=== PATIENT | male | born 1935 | race Caucasian/White ===

== ENCOUNTER 2019-05-15 09:54 | Emergency (ER) | payer MEDICARE ==
[2019-05-15 11:10] LABS: ABS Basophils 0.1 10^3/ul (0-0.2); ABS Monocytes 1.2 10^3/ul (0-0.8); ABS Neutrophils 3.7 10^3/ul (1.5-7.7); Eosinophil % 0.3 %; Hematocrit 45 % (42-52); Hemoglobin 15.3 g/dL (14.0-18.0); Mean Corpuscular HGB Conc 34 g/dL (31-36); Mean Corpuscular Hemoglobin 33 pg (27-31); Mean Corpuscular Volume 95 fL (80-94); Mean Platelet Volume 8.1 fL (7.4-10.4); Platelet Count 156 10^3/uL (150-450); Red Blood Count 4.71 10^6 /uL (4.18-5.48); Red Cell Distribution Width 14 % (10-15)
--- NOTE | 2019-05-15 11:18 | ED ---
Adult Trauma - HPI Summary HPI Summary: The pt is an 83 yr old male presenting to [facility] c/o contusion to the left forehead after falling beginning last night. He states that he was trying to get out of bed last night but fell and hit his head. The pt was able to remember the incident and denies any LOC. He denies any pain and rates his current pain severity a 0/10. No aggravating or alleviating factors noted. He mentions that he has been fighting a cold for the past 3 days. He also reports fatigue, nasal congestion, coughing, shoulder pain and feeling foggy and slow . - History of Current Complaint Chief Complaint: EDHeadInjury Time Seen by Provider: 05/15/19 10:44 Hx Obtained From: Patient Mechanism of Injury: Fall Loss of Consciousness: no loss of consciousness Onset/Duration: Started Days Ago, Resolved Onset of Pain: Post Accident Onset Severity: Mild Current Severity: None Pain Intensity: 0 Pain Scale Used: 0-10 Numeric Location: Head Aggravating Factor(s): Nothing Alleviating Factor(s): Nothing Associated Signs & Symptoms: Positive: Cough, Other: - pos - fatigue, nasal congestion, shoulder pain, feeling "foggy and slow". Negative: Loss of Consciousness - Allergy/Home Medications Allergies/Adverse Reactions: Allergies Allergy/AdvReac Type Severity Reaction Status Date / Time No Known Allergies Allergy Verified 05/15/19 10:01 PMH/Surg Hx/FS Hx/Imm Hx Sensory History: Denies: Hx Legally Blind, Hx Deafness Opthamlomology History: Denies: Hx Legally Blind EENT History: Denies: Hx Deafness - Surgical History Surgical History: Yes Surgery Procedure, Year, and Place: stents. ablation. left TKA. back surgery Infectious Disease History: No Infectious Disease History: Denies: Traveled Outside the US in Last 30 Days - Family History Known Family History: Positive: Hypertension - Social History Lives: With Family Alcohol Use: Daily Substance Use Type: Reports: None Smoking Status (MU): Never Smoked Tobacco Review of Systems Positive: Fatigue Positive: Other - pos - nasal congestion Positive: Cough Positive: Other - pos - shoulder pain Neurological: Other - pos - feeling "foggy and slow" Negative: Syncope All Other Systems Reviewed And Are Negative: Yes Physical Exam - Summary Physical Exam Summary: Appearance: The patient is well-nourished in no acute distress and in no acute pain. Skin: The skin is warm and dry and skin color reflects adequate perfusion. HEENT: The head is normocephalic and atraumatic. The pupils are equal and reactive. The conjunctivae are clear and without drainage. Nares are patent and without drainage. Mouth reveals moist mucous membranes and the throat is without erythema and exudate. The external ears are intact. The ear canals are patent and without drainage. The tympanic membranes are intact. Neck: The neck is supple with full range of motion and non-tender. There are no carotid bruits. There is no neck vein distension. Respiratory: Chest is non-tender. Lungs are clear to auscultation and breath sounds are symmetrical and equal. Cardiovascular: Heart is regular rate and rhythm. There is no murmur or rub auscultated. There is no peripheral edema and pulses are symmetrical and equal. Abdomen: The abdomen is soft and non-tender. There are normal bowel sounds heard in all four quadrants and there is no organomegaly palpated. Musculoskeletal: There is no back tenderness noted. Extremities are non-tender with full range of motion. There is good capillary refill. There is no peripheral edema or calf tenderness elicited. Neurological: Patient is alert and oriented to person, place and time. The patient has symmetrical motor strength in all four extremities. Cranial nerves are grossly intact. Deep tendon reflexes are symmetrical and equal in all four extremities. Psychiatric: The patient has an appropriate affect and does not exhibit any anxiety or depression. Triage Information Reviewed: Yes Vital Signs On Initial Exam: Initial Vitals Temp Pulse Resp BP Pulse Ox 99.4 F 68 18 131/70 97 05/15/19 09:58 05/15/19 09:58 05/15/19 09:58 05/15/19 09:58 05/15/19 09:58 Vital Signs Reviewed: Yes Diagnostics - Vital Signs Vital Signs Temp Pulse Resp BP Pulse Ox 05/15/19 11:01 60 05/15/19 11:00 60 130/72 94 05/15/19 10:59 64 97 05/15/19 09:58 99.4 F 68 18 131/70 97 - Laboratory Lab Results: Lab Results 05/15/19 Range/Units 11:02 WBC 6.0 (3.5-10.8) 10^3/uL RBC 4.71 (4.18-5.48) 10^6 /uL Hgb 15.3 (14.0-18.0) g/dL Hct 45 (42-52) % MCV 95 H (80-94) fL MCH 33 H (27-31) pg MCHC 34 (31-36) g/dL RDW 14 (10-15) % Plt Count 156 (150-450) 10^3/uL MPV 8.1 (7.4-10.4) fL Neut % (Auto) 61.6 % Lymph % (Auto) 17.0 % Callaway % (Auto) 20.0 % Eos % (Auto) 0.3 % Baso % (Auto) 1.1 % Absolute Neuts (auto) 3.7 (1.5-7.7) 10^3/ul Absolute Lymphs (auto) 1.0 (1.0-4.8) 10^3/ul Absolute Monos (auto) 1.2 H (0-0.8) 10^3/ul Absolute Eos (auto) 0.0 (0-0.6) 10^3/ul Absolute Basos (auto) 0.1 (0-0.2) 10^3/ul Absolute Nucleated RBC 0.0 10^3/ul Nucleated RBC % 0.0 Result Diagrams: 05/15/19 11:02 05/15/19 11:02 Lab Statement: Any lab studies that have been ordered have been reviewed, and results considered in the medical decision making process. - Radiology CXR Radiology Interpretation Completed By: Radiologist Summary of Radiographic Findings: IMPRESSION(S): NO ACTIVE CARDIOPULMONARY DISEASE. ED Physician has reviewed this report. - CT Brain CT CT Interpretation Completed By: Radiologist Summary of CT Findings: IMPRESSION(S): NO ACUTE INTRACRANIAL PATHOLOGY. ED Physician has reviewed this report. - EKG 1106 Cardiac Rate: NL - 69 bpm EKG Rhythm: Sinus Rhythm Summary of EKG Findings: Sinus rhythm @ 69 bpm. Non-specific T-wave changes diffusely. Re-Evaluation - Re-Evaluation Second Eval Re-Evaluation Time: 15:13 - 2nd troponin results discussed with pt. First Eval Re-Evaluation Time: 12:17 - Lab and imaging results discussed with pt. Adult Trauma Course/Dx - Course Course Of Treatment: Mr. Parker traveled here on a red eye flight arriving Friday morning. He has not recovered well and is complaining of a lot of tiredness and undue fatigue. He got up to urinate during the night and lost his balance, fell hitting his head and suffered a lot of bleeding. He is on Eliquis. He was nontoxic in appearance with stable vitals and had a significant abrasion on his head. He was kept on the monitor while we did a workup. His troponin was in the low indeterminate range at 0.04. Because of his fatigue and slightly elevated troponin I recommended that we watch him overnight in the hospital. He did not want stay but was willing to stay for repeat troponin. The repeat troponin came back at 0.05 and I was able to convince him to stay for a third troponin which was again 0.04. He has had cardiac problems in the past and some mild renal insufficiency and I think that this represents a chronic very slight indeterminant result. He does state that he is congested and was concerned that he had pneumonia but a chest x-ray was negative. I encouraged him to return if anything changed and he was willing to do so. - Diagnoses Provider Diagnoses: Head injury Discharge - Sign-Out/Discharge Documenting (check all that apply): Patient Departure - Discharge Patient Received Moderate/Deep Sedation with Procedure: No - Discharge Plan Condition: Stable Disposition: HOME Patient Education Materials: Head Injury (ED) Referrals: [facility] [Outside] - 3 Days Additional Instructions: Please follow up with your primary care doctor in the next 2-3 days and return to the emergency department for worsening or concerning symptoms. - Billing Disposition and Condition Condition: STABLE Disposition: Home - Attestation Statements Document Initiated by Hever: Yes Documenting Scribe: Tyrell Tejeda Provider For Whom Hever is Documenting (Include Credential): Mihai Gamboa MD Scribe Attestation: I, Tyrell Tejeda, scribed for Mihai Gamboa MD on 05/15/19 at 1945. Scribe Documentation Reviewed: Yes Provider Attestation: The documentation as recorded by the Tyrell murillo accurately reflects the service I personally performed and the decisions made by me, Mihai Gamboa MD Status of Scriblaurent Document: Viewed
[2019-05-15 11:28] LABS: ALT 25 U/L (7-52); AST 27 U/L (13-39); Albumin 4.5 g/dL (3.2-5.2); Alkaline Phosphatase 55 U/L (34-104); Anion Gap 8 mmol/L (2-11); BUN/Creatinine Ratio 15.9 (8-20); Blood Urea Nitrogen 20 mg/dL (6-24); CO2 Carbon Dioxide 25 mmol/L (22-32); Calcium 8.9 mg/dL (8.6-10.3); Chloride 102 mmol/L (101-111); EGFR African American 66.1 (>60); EGFR Non-African American 54.7 (>60); Globulin 2.3 g/dL (2-4); Glucose 104 mg/dL (70-100); Potassium 4.5 mmol/L (3.5-5.0); Sodium 135 mmol/L (135-145); Total Protein 6.8 g/dL (6.4-8.9)
[2019-05-15 11:47] LABS: Troponin I 0.04 ng/mL (<0.04)
[2019-05-15 15:09] LABS: Troponin I 0.05 ng/mL (<0.04)
[2019-05-15 17:37] LABS: Troponin I 0.04 ng/mL (<0.04)
[2019-05-15 17:50] VITALS: BP 137/85
== END 2019-05-15 17:49 | disposition home or self-care (01) ==
LOC: ED 09:54
DX: S09.90XA Unspecified injury of head, initial encounter (principal); R53.83 Other fatigue; W19.XXXA Unspecified fall, initial encounter; Y92.9 Unspecified place or not applicable; Z79.01 Long term (current) use of anticoagulants
CPT/HCPCS: 36415; 70450; 71046; 80053; 83605; 84443; 84484; 85025; 93005; 99283

== ENCOUNTER 2019-05-18 13:07 | Observation (INO) | payer MEDICARE ==
[2019-05-18] MEDS ORDERED: NS 0.9% 500 ML* 500 ML IV ONE (13:28)
[2019-05-18 13:35] LABS: ABS Lymphocytes 1.3 10^3/ul (1.0-4.8); ABS Monocytes 1.1 10^3/ul (0-0.8); ABS Neutrophils 3.3 10^3/ul (1.5-7.7); Eosinophil % 0.3 %; Hematocrit 43 % (42-52); Hemoglobin 14.9 g/dL (14.0-18.0); Lymphocyte % 22.3 %; Mean Corpuscular HGB Conc 35 g/dL (31-36); Mean Corpuscular Hemoglobin 32 pg (27-31); Mean Corpuscular Volume 93 fL (80-94); Mean Platelet Volume 8.6 fL (7.4-10.4); Nucleated Red Blood Cells % 0.3; Platelet Count 148 10^3/uL (150-450); Red Blood Count 4.61 10^6 /uL (4.18-5.48); Red Cell Distribution Width 14 % (10-15); White Blood Count 5.7 10^3/uL (3.5-10.8)
--- NOTE | 2019-05-18 13:37 | ED ---
Shortness of Breath - HPI Summary HPI Summary: The pt is a 83 yr old male presenting to [facility] c/o SOB with exertion beginning 3 hours SPARK TESTER. He states that he was walking on a treadmill earlier this morning and starting feeling some SOB. He notes that the SOB is only with exertion but not at rest. He mentions that he had a fall 1 week SPARK TESTER and was seen at [facility] [address] Gamboa who found that he had a high troponin. He denied admission to [facility]. Per the EMS, he is currently in A-fib for the first time in 10 years. No alleviating factors noted. He rates his current pain severity a 0/ 10. He also reports fatigue due to an ongoing cold but denies any cough, fever, leg pain, or edema. He mentions that he has had 6 stents, a pacemaker, cardiac ablation, and Hx of A-fib. Allergies noted. Medications reviewed. - History of Current Complaint Chief Complaint: EDShortnessOfBreath Time Seen by Provider: 05/18/19 13:11 Hx Obtained From: Patient Onset/Duration: Sudden Onset, Lasting Hours, Resolved Timing: Intermittent Episodes Lasting: - several minutes Current Severity: None Dyspnea At: Exertion Aggravating Factors: Movement - walking on treadmill Alleviating Factors: Nothing Associated Signs & Symptoms: Negative - cough, fever, leg pain, edema - Allergy/Home Medications Allergies/Adverse Reactions: Allergies Allergy/AdvReac Type Severity Reaction Status Date / Time No Known Allergies Allergy Verified 05/18/19 11:39 PMH/Surg Hx/FS Hx/Imm Hx Endocrine/Hematology History: Reports: Hx Thyroid Disease Denies: Hx Diabetes Cardiovascular History: Reports: Hx Hypertension, Hx Pacemaker/ICD Respiratory History: Denies: Hx Asthma, Hx Chronic Obstructive Pulmonary Disease (COPD) GI History: Denies: Hx Ulcer Sensory History: Denies: Hx Legally Blind, Hx Deafness Opthamlomology History: Denies: Hx Legally Blind EENT History: Denies: Hx Deafness - Surgical History Surgery Procedure, Year, and Place: stents. ablation. left TKA. back surgery Infectious Disease History: No Infectious Disease History: Denies: Hx Hepatitis, Hx Human Immunodeficiency Virus (HIV), Traveled Outside the US in Last 30 Days - Family History Known Family History: Positive: Hypertension - Social History Alcohol Use: Daily Alcohol Amount: 2 shots gin per day Substance Use Type: Reports: None Smoking Status (MU): Never Smoked Tobacco Review of Systems Positive: Fatigue. Negative: Fever Positive: Shortness Of Breath - on exertion. Negative: Cough Positive: Other - neg - leg pain. Negative: Edema All Other Systems Reviewed And Are Negative: Yes Physical Exam - Summary Physical Exam Summary: Constitutional: Well-developed, Well-nourished, Alert. (-) Distressed Skin: Warm, Dry HENT: Normocephalic; Atraumatic Eyes: Conjunctiva normal Neck: Musculoskeletal ROM normal neck. (-) JVD, (-) Stridor, (-) Tracheal deviation Cardio: Arrhythmia on monitor, no tachycardia, Heart sounds normal; Intact distal pulses; The pedal pulses are 2+ and symmetric. Radial pulses are 2+ and symmetric. (-) Murmur Pulmonary/Chest wall: Effort normal. (-) Respiratory distress, (-) Wheezes, (-) Rales Abd: Soft, (-) tenderness, (-) Distension, (-) Guarding, (-) Rebound Musculoskeletal: (-) Edema Lymph: (-) Cervical adenopathy Neuro: Alert, Oriented x3 Psych: Mood and affect Normal Triage Information Reviewed: Yes Vital Signs On Initial Exam: Initial Vitals Temp Pulse Resp BP Pulse Ox 97.4 F 77 20 75/59 71 05/18/19 13:15 05/18/19 13:15 05/18/19 13:15 05/18/19 13:15 05/18/19 13:15 Vital Signs Reviewed: Yes Diagnostics - Vital Signs Vital Signs Temp Pulse Resp BP Pulse Ox 05/18/19 13:23 99 05/18/19 13:15 97.4 F 77 20 75/59 71 - Laboratory Result Diagrams: 05/18/19 13:28 05/18/19 13:28 Lab Statement: Any lab studies that have been ordered have been reviewed, and results considered in the medical decision making process. - Radiology CXR Radiology Interpretation Completed By: Radiologist Summary of Radiographic Findings: IMPRESSION(S): No acute cardiopulmonary process by radiograph. ED Physician has reviewed this report. - EKG 1331 Cardiac Rate: Other Rate - A-fib @ 87 bpm EKG Rhythm: Atrial Fibrillation Summary of EKG Findings: A-fib @ 87 bpm, multiple PVCs, no ST segment changes. Re-Evaluation - Re-Evaluation First Eval Re-Evaluation Time: 13:31 Comment: Pt BP reading is initially hypotensive. A repeat BP test shows normal BP levels. Cuff size is changed, pt is clinically not hypotensive. Course/Dx - Course Course Of Treatment: Patient is here with exertional shortness of breath. Upon arrival, patient was in atrial fibrillation not RVR. Patient was initially hypotensive but that improved after proper size blood pressure cuff was found. Patient was here on Friday with elevated troponin but declined admission then. Patient has an elevated troponin again of 0.08. Patient's EKG did not show any evidence of ischemia. Patient does have a mildly elevated BNP. Given patient's cardiac history and troponin leak, patient was admitted to the hospital for further evaluation and management. - Diagnoses Differential Diagnosis/HQI/PQRI: Positive: NH, Pneumonia, Pulmonary Embolism, Other - CHF, viral syndrome Provider Diagnoses: Afib, NSTEMI (non-ST elevated myocardial infarction), Elevated brain natriuretic peptide (BNP) level, SOB (shortness of breath) on exertion - Physician Notifications Discussed Care of Patient With: Erika Saenz - Dr. Saenz will admit the pt. Time Discussed With Above Provider: 14:18 Instructed by Provider To: Admit As Inpatient Discharge ED - Sign-Out/Discharge Documenting (check all that apply): Patient Departure - admit Patient Received Moderate/Deep Sedation with Procedure: No - Discharge Plan Condition: Stable Disposition: ADMITTED TO [facility] Referrals: No Primary Care Phys,[facility] [Primary Care Provider] - - Billing Disposition and Condition Condition: STABLE Disposition: Admitted to [facility] - Attestation Statements Document Initiated by Hever: Yes Documenting Scribe: Tyrell Tejeda Provider For Whom Hever is Documenting (Include Credential): Filippo Liu MD Scribe Attestation: Tyrell Anderson, scribed for Filippo Liu MD on 05/18/19 at 1436. Scribe Documentation Reviewed: Yes Provider Attestation: The documentation as recorded by the Tyrell murillo accurately reflects the service I personally performed and the decisions made by me, Filippo Liu MD Status of Scribe Document: Viewed
[2019-05-18 13:59] LABS: ALT 48 U/L (7-52); AST 43 U/L (13-39); Albumin 3.9 g/dL (3.2-5.2); Albumin/Globulin Ratio 1.6 (1-3); Alkaline Phosphatase 47 U/L (34-104); Anion Gap 6 mmol/L (2-11); BUN/Creatinine Ratio 23.6 (8-20); Blood Urea Nitrogen 34 mg/dL (6-24); CO2 Carbon Dioxide 22 mmol/L (22-32); Calcium 8.9 mg/dL (8.6-10.3); Chloride 106 mmol/L (101-111); EGFR African American 56.7 (>60); EGFR Non-African American 46.9 (>60); Globulin 2.4 g/dL (2-4); Glucose 92 mg/dL (70-100); Potassium 4.6 mmol/L (3.5-5.0); Sodium 134 mmol/L (135-145); Total Protein 6.3 g/dL (6.4-8.9)
[2019-05-18 14:44] LABS: Troponin I 0.08 ng/mL (<0.04)
[2019-05-18] MEDS ORDERED: Al Hydrox/Mg Hydrox/Simet LIQ* 30 ML UDC PO PRN (15:10)
--- NOTE | 2019-05-18 16:23 | HP ---
HISTORY AND PHYSICAL: DATE OF ADMISSION: 05/18/19 PRIMARY CARE PROVIDER: The patient's primary care provider is in [place], none locally. CHIEF COMPLAINT: Shortness of breath and cough. HISTORY OF PRESENT ILLNESS: Brien Parker is an 83-year-old male with history of paroxysmal atrial fibrillation, status post ablation, pacemaker placement, and coronary artery disease who presented to the hospital complaining of cough and shortness of breath ever since he "caught that cold from the airplane." The patient stated that he arrived to [facility] from [place] on 05/14/19. On 05/15/19, he got up in the middle of the night to go to the bathroom, he slipped and fell and had an abrasion on his forehead. He came into the ED for evaluation. Here, he was noted to be in normal sinus rhythm, but his troponin continued to be at 0.04 to 0.05. He was recommended admission, but he refused and left the ED at that point. The patient stated that ever since then he has been coughing, which is nonproductive. He also had been more short of breath, although that is somewhat questionable since the patient stated that he had been more short of breath for the past 6 months or so when walking up the stairs. The patient's troponin turned out to be 0.08. Otherwise, his workup is grossly unremarkable and he is going to be placed on overnight observation with a diagnosis of elevated troponin. PAST MEDICAL HISTORY: 1. History of paroxysmal atrial fibrillation, status post ablation in 2009 in [place], [place]. The patient stated that from his pacemaker interrogation in the past, he would have "short burst of atrial fibrillation." 2. History of status post 6 stents placed during multiple cardiac catheterizations in the past, the last one was in 2007. 3. Status post pacemaker placement over 25 years ago. 4. History of left total knee replacement. 5. History of lower back surgery. 6. History of hypertension. 7. Dyslipidemia. MEDICATIONS AT HOME: Include: 1. Simvastatin 20 mg daily. 2. Xarelto 20 mg daily. 3. Levothyroxine 100 mcg daily. 4. Aspirin 81 mg daily. 5. Lisinopril 20 mg daily. ALLERGIES: No known drug allergies. FAMILY HISTORY: Positive for mother who at the age of 92 secondary to pneumonia and father who at the age of 82 secondary to old age. SOCIAL HISTORY: The patient denies any tobacco or drug use. He uses 2 gin and tonics a day. He lives with his , who is his surrogate. He is fully independent with activities of daily living. REVIEW OF SYSTEMS: Please see history of present illness. Positive for nonproductive cough. Positive for shortness of breath with exertion for the past 6 months. Negative for palpitations or chest pain. Negative for leg edema. Negative for fever. All the remaining 12 systems were reviewed with the patient and were otherwise negative. PHYSICAL EXAMINATION GENERAL: The patient is a very pleasant 83-year-old male, who is in no acute distress, alert, awake, and oriented x3. VITAL SIGNS: Blood pressure of 110/71, heart rate of 82 and irregular, respiratory rate 14, oxygen saturation 98% on room air, temperature of 97.4. HEENT: Head: Atraumatic, normocephalic. Eyes: Pupils are equal, reactive to light and accommodation. Oropharynx is clear. Mucosa moist. NECK: Supple. No JVD. No bruits bilaterally. RESPIRATORY: Coarse breath sounds bilaterally and scant wheezes in bilateral mid lungs. CARDIOVASCULAR: Irregular heart rate. No murmur. ABDOMEN: Soft, nontender. Bowel sounds are present in all 4 quadrants. EXTREMITIES: There is no edema. Pulses are +2 bilaterally. No clubbing or cyanosis. NEURO EVALUATION: Speech is clear. Cranial nerves II through XII grossly intact. Motor strength is 5/5 bilaterally. PSYCHIATRIC: Oriented x3 with no evidence of anxiety or depression. DIAGNOSTIC STUDIES/LAB DATA: Sodium of 134, potassium 4.6, chloride 106, carbon dioxide 22, BUN 34, creatinine 1.44. Liver function tests unremarkable apart from slight elevation of AST at 43. The patient's troponin is 0.08. Brain natriuretic peptide was 356. CBC: White blood cell count 5.7, hemoglobin of 14.9, hematocrit of 43, and platelets of 148. Portable chest x-ray reviewed by myself and read by the radiologist, impression : "Overlying support devices obscured the muniz of view. The lungs are clear. There is no pleural effusion. The cardiomediastinal silhouette is within normal limits and left chest wall pacemaker is in place. The upper abdominal contents are normal. Also, structures are unremarkable. No acute cardiopulmonary process by radiograph." The patient's EKG showed atrial fibrillation with a heart rate of 87 beats per minute with frequent PVCs. Comparing with an EKG from a week ago, the patient at that point was in sinus rhythm and no PVCs were noted. ASSESSMENT AND PLAN: 1. In regards to the patient's shortness of breath and cough, it appears to be related to bronchitis. His nonproductive cough and lack of fevers and somewhat insidious onset is likely due to viral etiology, but bacterial etiology also has to be ruled out. At this point, I will place the patient on empiric doxycycline for acute bronchitis. 2. For his elevated troponin, it is likely due to demand ischemia in a patient with bronchitis. We will trend troponins. Place the patient on telemetry monitored bed. We will also obtain transthoracic echocardiogram. 3. For his atrial fibrillation, he is rate controlled. I will continue the patient's Xarelto. I will ask for pacemaker interrogation if possible, although the patient stated that the pacemaker is over 25 years old and he does not remember the brand name. I suspect the patient had been in and out of slower atrial fibrillation in the past 10 years after his ablation. That is likely why he was continued on Xarelto. 4. Increased creatinine. His creatinine a week ago was 1.2. I suspect he has acute kidney injury due to dehydration. We will place the patient on gentle intravenous fluids. 5. For DVT prophylaxis, the patient is going to be continued on Xarelto. TIME SPENT: Approximately 72 minutes was spent on admission of this patient, more than half that time was spent [id number] with the patient during the interview and physical exam. [id number]/[facility] #: [id number] CLAUDIO
[2019-05-18 16:49] LABS: Troponin I 0.07 ng/mL (<0.04)
[2019-05-18 17:00] LABS: TSH (Thyroid Stimulating Horm) 2.65 mcIU/mL (0.34-5.60)
[2019-05-18] MEDS: NS 0.9% 1000 ML** 1,000 ML IV SCH (17:11)
[2019-05-18] MEDS: DOXYcycline CAP(*) 100 MG PO SCH (20:15)
[2019-05-18 20:38] LABS: Urine Appearance Clear; Urine Bilirubin Negative (Negative); Urine Blood Negative (Negative); Urine Color Yellow; Urine Glucose Negative (Negative); Urine Ketones Negative (Negative); Urine Nitrite Negative (Negative); Urine Protein Negative (Negative); Urine Specific Gravity 1.017 (1.010-1.030); Urine Urobilinogen Negative (Negative)
[2019-05-19] MEDS ORDERED: Levothyroxine TAB* 100 MCG TAB PO SCH (06:00)
[2019-05-19] MEDS: NS 0.9% 1000 ML** 1,000 ML IV SCH (06:12)
[2019-05-19 06:44] LABS: ABS Lymphocytes 1.4 10^3/ul (1.0-4.8); ABS Monocytes 0.7 10^3/ul (0-0.8); ABS Neutrophils 2.4 10^3/ul (1.5-7.7); Eosinophil % 0.7 %; Hematocrit 41 % (42-52); Hemoglobin 14.4 g/dL (14.0-18.0); Lymphocyte % 31.2 %; Mean Corpuscular HGB Conc 35 g/dL (31-36); Mean Corpuscular Hemoglobin 33 pg (27-31); Mean Corpuscular Volume 92 fL (80-94); Mean Platelet Volume 9.4 fL (7.4-10.4); Platelet Count 129 10^3/uL (150-450); Red Blood Count 4.42 10^6 /uL (4.18-5.48); Red Cell Distribution Width 14 % (10-15); White Blood Count 4.6 10^3/uL (3.5-10.8)
[2019-05-19 06:58] LABS: BUN/Creatinine Ratio 24.8 (8-20); Calcium 8.1 mg/dL (8.6-10.3); Potassium 4.2 mmol/L (3.5-5.0)
[2019-05-19] MEDS: DOXYcycline CAP(*) 100 MG PO SCH (08:29)
[2019-05-19] MEDS ORDERED: Rivaroxaban TAB(*) 20 MG TAB PO SCH (08:30)
[2019-05-19] MEDS ORDERED: Atorvastatin* 10 MG TAB PO SCH (09:00)
[2019-05-19] MEDS ORDERED: Psyllium PAK PO SCH (09:00)
[2019-05-19] MEDS ORDERED: Aspirin 81 mg CHEW TAB* 81 MG TAB.CHEW PO SCH (09:00)
--- NOTE | 2019-05-19 10:08 | ECHO ---
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 History: Atrial fibrillation. Risk factors: Hypertension. Dyslipidemia. Labs, prior tests, procedures, and surgery: Catheterization. There was a stenosis which was treated with a stent. Permanent pacemaker system implantation. Electrophysiology study with ablation. Conclusions Summary: - Left ventricle: There is moderate concentric hypertrophy. Systolic function is at the lower limits of normal. The estimated ejection fraction is 50-55%. - Right ventricle: Pacer wire noted in the right ventricle. Systolic function is normal. - Mitral valve: There is mild regurgitation. - Tricuspid valve: There is trace to mild regurgitation. - Aorta: The ascending aorta internal dimension in the A-P direction, maximal systolic dimension is 3.9 cm. - Ascending aorta: The ascending aorta is mildly dilated. - Pulmonary arteries: Systolic pressure is within the normal range. Study data: Transthoracic echocardiogram. Procedure: Transthoracic echocardiography was performed. Image quality was fair. The study was technically limited due to poor acoustic window availability. Complete 2D, spectral Doppler, and color flow Doppler. Location: Bedside. Patient status: Inpatient. Patient room number: 439. Rhythm: Paced rhythm. Atrial fibrillation. Findings Left ventricle: The cavity size is normal. There is moderate concentric hypertrophy. Systolic function is at the lower limits of normal. The estimated ejection fraction is 50-55%. Wall motion is normal; there are no regional wall motion abnormalities. Left ventricular diastolic function parameters are indeterminate. Right ventricle: The cavity size is mildly dilated. Pacer wire noted in the right ventricle. Systolic function is normal. Systolic pressure is within the normal range. Ventricular septum: There is abnormal interventricular septal wall motion consistent with an RV pacemaker. Left atrium: The atrium is moderately dilated. Right atrium: The atrium is at the upper limits of normal in size. Pacer wire noted in right atrium. Mitral valve: The leaflets are mildly thickened. There is no evidence of stenosis. There is mild regurgitation. Aortic valve: The valve is trileaflet. The leaflets are mildly thickened. There is no evidence of stenosis. There is no significant regurgitation. Tricuspid valve: The leaflets are normal thickness. There is no evidence of stenosis. There is trace to mild regurgitation. Pulmonic valve: Poorly visualized. The leaflets are normal thickness. There is no evidence of stenosis. There is trace regurgitation. Aorta: Aortic root: The aortic root is upper normal in size. Ascending aorta: The ascending aorta is mildly dilated. The aortic arch appears normal. Pericardium: A prominent pericardial fat pad is present. There is no significant pericardial effusion. Pulmonary arteries: The main pulmonary artery is normal-sized. Systolic pressure is within the normal range. Systemic veins: Inferior vena cava: The vessel is normal in size. There is (>= 50%) respiratory change in the IVC dimension. Measurements Left ventricle Value Ref Aortic valve Value Ref LEONEL, LAX 4.4 cm 4.2 - 5.8 Celia diam, ED 2.6 cm ----- ESD, LAX 3.4 cm 2.5 - 4.0 Peak v, S 1.09 m/sec ----- FS, LAX (L) 24 % 25 - 43 VTI, S 22.7 cm ----- PW, ED, LAX (H) 1.4 cm 0.6 - 1.0 Mean grad, S 3.0 mm Hg ----- FS (L) 24 % 25 - 43 Peak grad, S 5.0 mm Hg ----- PW, ED (H) 1.4 cm 0.6 - 1.0 LVOT/AV, VTI ratio 0.7 ----- E', lat celia, TDI (L) 5.8 cm/sec >=10.0 RHINA, VTI 2.44 cm^2 --- -- E/e', lat celia, 17 RHINA, Vmax 2.90 cm^2 ----- TDI E', med celia, TDI (L) 6.1 cm/sec >=7.0 Mitral valve Value Ref E/e', med celia, 17 Peak E 1.01 m/sec ----- TDI Peak A 0 m/sec ----- E', avg, TDI 6.0 cm/sec Decel time 227 ms ----- E/e', avg, TDI (H) 17 <=14 Peak grad, D 4.1 mm Hg --- -- LVOT Value Ref Pulmonic valve Value Ref Diam, S 2.10 cm Peak v, S 0.73 m/sec ----- Area 3.5 cm^2 Peak grad, S 2.0 mm Hg ----- Peak blaine, S 0.91 m/sec VTI, S 16.0 cm Tricuspid valve Value Ref Mean grad, S 2 mm Hg TR peak v 1.84 m/sec <=2.8 SV 56 ml Peak RV-RA grad, S 14 mm Hg ----- SV/bsa 25 ml/m^2 Aortic root Value Ref Ventricular septum Value Ref Root diam 3.8 cm <4.3 IVS, ED (H) 1.4 cm 0.6 - 1.0 Ascending aorta Value Ref Right ventricle Value Ref AAo AP diam, S 3.9 cm ----- LEONEL, LAX 3.6 cm LEONEL minor ax, A4C (H) 4.5 cm 1.9 - 3.5 Aortic arch Value Ref mid Arch diam 2.5 cm ----- Pressure, S 17 mm Hg Decending aorta Value Ref Left atrium Value Ref Celia peak blaine 0.47 m/sec ----- AP dim, ES (H) 4.30 cm 3.00 - 4.00 Pulmonary artery Value Ref ML dim, A4C 4.0 cm Pressure, S 15.0 mm Hg ----- SI dim, A4C 5.7 cm Vol/bsa, ES, 1-p 32 ml/m^2 12 - 37 Inferior vena cava Value Ref A4C Diam 1.9 cm ----- Vol/bsa, ES, A/L (H) 45 ml/m^2 16 - 34 Right atrium Value Ref SI dim, ES 4.9 cm 3.4 - 5.3 ML dim, ES, A4C 4.4 cm 2.6 - 4.4 SI dim, ES, A4C 4.9 cm 3.4 - 5.3 SI dim/bsa, ES, 2.2 cm/m^2 1.8 - 3.0 A4C Estimated RAP 3 mm Hg Legend: (L) and (H) jennifer values outside specified reference range. Prepared and electronically signed by Coty Knott MD 05/19/2019 10:08
[2019-05-19] MEDS ORDERED: Albuterol HFA INHALER* 8 gm MDI INH PRN (11:45)
[2019-05-19 11:53] VITALS: BP 117/62
--- NOTE | 2019-05-19 14:21 | DS ---
CC: Dr. Pablito Zuñiga, [address], [address], [place], [place] [address] , fax number [phone], phone number [phone]; Dr. Knott * DISCHARGE SUMMARY: DATE OF ADMISSION: 05/18/19 DATE OF DISCHARGE: 05/19/19 PRIMARY CARE PROVIDER: None locally. NETWORKING ADMINISTRATOR: Dr. Pablito Zuñiga. DISCHARGE DIAGNOSES: 1. Shortness of breath and cough due to bronchitis. 2. Elevated troponin, likely due to demand ischemia secondary to bronchitis. 3. Acute kidney injury due to dehydration. SECONDARY DIAGNOSES: 1. History of paroxysmal atrial fibrillation, status post ablation and pacemaker placement. As per review of medical records, the patient now is in and out of atrial fibrillation and since his ablation is asymptomatic when he has it. 2. History of coronary artery disease. The patient noted to have a total of 6 stents in the past, most recent one he reported in 2007. Most of them were at "some place in the [facility]." 3. History of hypertension. 4. History of dyslipidemia. 5. History of sick sinus syndrome. LABORATORY DATA AND STUDIES PERFORMED DURING THE HOSPITAL STAY: Included troponin of 0.08 and 0.07. On 05/19/19, sodium of 137, potassium 4.2, chloride 107, carbon dioxide 24, BUN 28, creatinine 1.13. CBC: White blood cell count of 4.6, hemoglobin of 14.4, hematocrit of 41, MCV of 92, platelets of 129. Portable chest x-ray showed "no acute cardiopulmonary process." Transthoracic echocardiogram showed EF 50% to 55% with mild mitral regurgitation and trace tricuspid regurgitation and ascending aorta internal dimension is maximum systolic dimension of 3.9 cm. Pulmonary pressures within normal range. HOSPITALIZATION COURSE: Mr. Brien Parker is an 83-year-old male who resides long- term in [place], but had been spending at least half of year in [place] during the jiang, who came in to [place] for the summer to hike in the [facility] with his friends and presented to the hospital complaining of shortness of breath and cough. Please note that approximately a week ago which was the day after the patient's arrival to [place], he fell and had abrasion on left side of the forehead. At this point, he was evaluated in the ED and was noted to have a troponin of 0.05 without any symptoms of chest pain and he refused further evaluation and went home. The patient stated that he must have picked up bronchitis on the plane since ever since then, he has been having dry cough, feeling short of breath and rather worn down. He has had low appetite. He presented to the ED with creatinine up to 1.4, troponin of 0.08, complaining of no chest pain, but shortness of breath and cough. He was diagnosed with acute bronchitis and placed on doxycycline. He was also noted to be in rate controlled atrial fibrillation, which after obtaining medical records from Dr. Zuñiga and the patient's prior building drafter, Dr. Rosado from [place], [place], it was noted that the patient has history of atrial fibrillation, which is paroxysmal and asymptomatic since his ablation. The patient himself was not aware that in the past he was in atrial fibrillation after the ablation and he thought that it was "fixed." During his hospital stay, his troponin went from 0.08 to 0.07. The patient has no chest pain. His shortness of breath got improved a little bit after doxycycline treatment. I will give him albuterol on a p.r.n. basis. Since he has no marked tachycardia on his rhythm strips, I hope that it will not worsen his atrial fibrillation. We interrogated his pacemaker and he was noted to be in the longest atrial fibrillation time for about 13 hours beginning 05/18/19. Now, he is intermittently in and out of AFib. It was also noted that his AFib may be under sensed by the right atrium and the RA sensitivity could be increased. I discussed the case with our building drafter, Dr. Knott, who noted that for the time being the pacemaker is working well and that could be addressed furthermore with the patient's regular building drafter. The patient is going to be placed on doxycycline and albuterol nebulizer. For the time being, since his creatinine is still mildly elevated, I will hold his lisinopril for about a week. He is advised not to perform strenuous exercise. He is advised to follow up with his primary care provider in regards to possibility of outpatient cardiac stress test once his bronchitis resolves. MEDICATIONS AT DISCHARGE: Include: 1. Aspirin 81 mg daily. 2. Levothyroxine 100 mcg daily. 3. Xarelto 20 mg daily. 4. Zocor 20 mg daily. 5. Albuterol inhaler on a p.r.n. basis. 6. Doxycycline 100 mg b.i.d. 7. Lisinopril to be held, but he usually he takes 20 mg daily and is to be held for another 7 days. PHYSICAL EXAMINATION: At the time of discharge, blood pressure of 117/62, heart rate of 71 and regular, respiratory rate 16, oxygen saturation 100% on room air, temperature 98.4. General: The patient is a pleasant 83-year-old male, who is in no acute distress. Alert, awake, and oriented x3. HEENT: Head : Atraumatic, normocephalic. Eyes: Pupils are equal, reactive to light and accommodation. Oropharynx is clear. Mucosa moist. Neck: Supple. No JVD. No bruits bilaterally. Cardiovascular: Regular rate and rhythm. No murmur. Respiratory: Coarse breath sounds at bilateral upper lobes with occasional wheezes in the bilateral mid lobes. Abdomen: Soft, nontender. Bowel sounds are present in all 4 quadrants. Extremities: There is no edema. Pulses are + 2 bilaterally. No clubbing or cyanosis. On neuro evaluation, speech is clear. Cranial nerves II through XII grossly intact. Motor strength is 5/5 bilaterally. Please note that this is a short summary of the patient's hospital stay. Please refer to further medical records for details. [id number]/[facility] #: [id number] MTDD
--- NOTE | 2019-06-13 20:19 | DS ---
DISCHARGE SUMMARY: ADDENDUM: CONDITION ON DISCHARGE: Stable. DISPOSITION: Discharge to home. [id number]/[facility] #: [id number] CLAUDIO
== END 2019-05-19 13:50 | disposition home or self-care (01) ==
LOC: ED 13:07 → MEDTELE 15:10
PROVIDERS: ADMIT Internal Medicine; ATTEND Internal Medicine
DX: J40 Bronchitis, not specified as acute or chronic (principal); R77.8 Other specified abnormalities of plasma proteins; N17.9 Acute kidney failure, unspecified; E86.0 Dehydration; I48.0 Paroxysmal atrial fibrillation; Z95.0 Presence of cardiac pacemaker; I25.10 Atherosclerotic heart disease of native coronary artery without angina pectoris; I10 Essential (primary) hypertension; E78.5 Hyperlipidemia, unspecified; I49.5 Sick sinus syndrome; Z79.82 Long term (current) use of aspirin; Z79.899 Other long term (current) drug therapy; R94.31 Abnormal electrocardiogram [ECG] [EKG]; E03.9 Hypothyroidism, unspecified; I95.9 Hypotension, unspecified
CPT/HCPCS: 36415; 71046; 80048; 80053; 81003; 83880; 84443; 84484; 85025; 93005; 93306; 96360; 96361; 99213; 99284; A9270-GY; G0378; G0463